=== PATIENT | male | born 1960 | race Caucasian/White ===

== ENCOUNTER 2021-06-30 19:52 | Observation (INO) ==
[2021-06-30] MEDS ORDERED: Naloxone 0.4 MG/ML INJ IVP PRN (22:54)
[2021-06-30] MEDS ORDERED: Acetaminophen 325 MG TABLET PO PRN (22:54)
[2021-06-30] MEDS ORDERED: Ondansetron 4 MG/2 ML VIAL IVP PRN (22:54)
[2021-07-01] MEDS: Gabapentin 300 MG CAPSULE PO SCH ×2 (00:44→08:03)
[2021-07-01] MEDS ORDERED: *HR* HYDROmorphone (PF) 1 MG/ML SYRINGE IVP ONE (03:47)
[2021-07-01 04:05] LABS: Bilirubin,Urine Negative (Negative); Blood,Urine Negative (Negative); Clarity,Urine Clear (Clear); Color,Urine Light-Yellow (Yellow); Glucose,Urine (UA) Normal (Normal); Ketones,Urine Negative (Negative); Leukocyte Esterase,Urine Negative (Negative); Nitrite,Urine Negative (Negative); PH,Urine 6.5 pH Units (5.0-8.0); Protein,Urine Negative (Neg-Trace); Specific Gravity,Urine > 1.030 (1.010-1.025); Urobilinogen,Urine Normal (Normal)
[2021-07-01 05:52] LABS: Basophils % 0.2 %; Eosinophils % 0.1 %; Hematocrit 42.8 % (37.5-50.1); Hemoglobin 14.9 g/dL (12.9-16.9); Immature Granulocytes % 1.1 % (0-4); Lymphocytes # 1.1 K/mcL (0.6-4.6); Lymphocytes % 9.5 %; Mean Corpuscular HGB Conc 34.8 g/dL (31.6-35.5); Mean Corpuscular Volume 91.8 fL (83.0-100.0); Mean Platelet Volume 8.7 fL (9.4-12.4); Monocytes # 0.2 K/mcL (0.0-1.3); Monocytes % 1.4 %; Neutrophils # 9.9 K/mcL (1.6-8.9); Platelet Count 299 K/mcL (140-400); Red Blood Count 4.66 M/mcL (4.19-5.50); Red Cell Distribution Width 12.7 % (11.5-14.5); Segmented Neutrophils % 87.7 %; White Blood Count 11.3 K/mcL (4.3-11.1)
[2021-07-01 06:04] LABS: BUN/Creatinine Ratio 19 (6-26); Blood Urea Nitrogen 21 mg/dL (8-23); Calcium 8.7 mg/dL (8.6-10.3); Carbon Dioxide 26 mEq/L (23-29); Chloride 98 mEq/L (98-107); Glucose 136 mg/dL (70-105); Osmolality,Calculated 279 (280-300); Potassium 4.2 mEq/L (3.5-5.1); Sodium 132 mEq/L (136-145); eGFR For African Americans > 60 (> 60); eGFR For Non-African Americans > 60 (> 60)
[2021-07-01] MEDS ORDERED: PARoxetine 20 MG TABLET PO SCH (09:00)
[2021-07-01] MEDS ORDERED: Loratadine 10 MG TABLET PO SCH (09:00)
[2021-07-01 11:03] VITALS: BP 125/83; PULSE 66; TEMP 98.6; O2SAT 94
[2021-07-01] MEDS ORDERED: Nicotine 21 MG PATCH.TD24 TD SCH (11:45)
[2021-07-01 11:47] LABS: C-Reactive Protein < 5 mg/L (Less than 10)
== END 2021-07-01 15:43 | disposition home or self-care (01) ==
LOC: 4WAOSI → SUATTDRO 22:24
PROVIDERS: ADMIT Internal Medicine; ATTEND Family Medicine